=== PATIENT | male | born 1965 | race African-American/Black ===

== ENCOUNTER 2024-06-30 01:54 | Emergency (ER) | payer BC ==
[~2024-06-30] VITALS: Ht 182.9 cm; Wt 100.0 kg
[2024-06-30 01:55] VITALS: O2SAT 97
[2024-06-30 02:50] LABS: BASOPHILS % 0.5 % (0.0-2.0); DIFFERENTIAL COMMENT 0; EOSINOPHILS % 0.6 % (0.0-5.0); HEMATOCRIT. 44.3 % (42.0-52.0); HEMOGLOBIN. 14.3 g/dL (14.0-18.0); LYMPHOCYTES % 23.1 % (20.0-50.0); MEAN CORPUSCULAR HEMOGLOBIN 29.4 pg (28.0-32.0); MEAN CORPUSCULAR HGB CONC 32.2 g/dL (31.0-37.0); MEAN CORPUSCULAR VOLUME 91.2 fL (80.0-94.0); MEAN PLATELET VOLUME 8.9 fl (7.4-10.4); MONOCYTES % 9.2 % (2.0-8.0); NEUTROPHILS % 66.6 % (40.0-76.0); PLATELET 144 x1000/uL (130-400); RED BLOOD CELL COUNT 4.86 mill/uL (4.7-6.1); RED CELL DISTRIBUTION WIDTH 14.8 % (11.6-14.6)
[2024-06-30 03:09] LABS: POTASSIUM 3.2 mEq/L (3.5-5.1)
[2024-06-30 03:15] LABS: CREATININE 1.5 mg/dL (0.6-1.3)
[2024-06-30 04:33] VITALS: BP 112/64; PULSE 70; RESP 13; TEMP 36.83628; O2SAT 100
== END 2024-06-30 05:06 | disposition home or self-care (01) ==
LOC: ER 01:54
DX: T43.591A Poisoning by other antipsychotics and neuroleptics, accidental (unintentional), initial encounter (principal); R41.82 Altered mental status, unspecified; Y92.89 Other specified places as the place of occurrence of the external cause
CPT/HCPCS: 36415; 80048; 85025; 99283